=== PATIENT | male | born 1950 | race Hispanic/Latino ===

== ENCOUNTER 2018-07-11 11:03 | Outpatient (CLI) | payer BC ==
--- NOTE | 2018-07-11 13:51 | MRI ---
MRI LEFT KNEE: DATE: 07/11/2018. PROVIDED CLINICAL HISTORY: Left knee pain. FINDINGS: The anterior cruciate ligament, posterior cruciate ligament, medial collateral ligament, and lateral collateral ligamentous complex demonstrate an intact MR appearance, as does the extensor mechanism. There is a complex nondisplaced tear involving the body and body-anterior horn junction of the latera l meniscus. There is signal alteration involving the body of the medial meniscus which is not clearl y grade III in nature. No focal articular cartilage defect is apparent. There is a small knee joint effusion. There is patchy signal alteration on fluid sensitive sequences involving the plantaris, lateral head gastrocnemius, and proximal soleus musculature in addition to the proximal anterior foreleg musculatu re. There is diffuse noncircumscribed fluid signal intensity within the subcutaneous adipose layer, essentially circumferentially about the knee. There is Young's cyst formation, with fluid signal int ensity along the intramuscular fascial planes of the posteromedial proximal foreleg presumably reflec ting Young's cyst rupture. Patchy signal alternation among fluid sensitive sequences also noted invo lving the distal biceps femoris muscle. IMPRESSION: 1. Complex nondisplaced body and body anterior horn junction tear of the lateral meniscus. 2. Small knee joint effusion with Young's cyst formation and evidence for Young's cyst rupture. 3. Patchy nonspecific signal alteration on fluid-sensitive sequences involving the proximal foreleg and to a lesser extent distal body musculature. Given the diffuse nature, myositis could be consider ed. Muscular strains could also be considered. POS: [facility]
== END 2018-07-11 11:04 | disposition home or self-care (01) ==
LOC: SCSMRI 11:03
PROVIDERS: ATTEND Orthopaedic Surgery
DX: S83.242A Other tear of medial meniscus, current injury, left knee, initial encounter (principal); S83.282A Other tear of lateral meniscus, current injury, left knee, initial encounter; M71.22 Synovial cyst of popliteal space [Baker], left knee; M25.462 Effusion, left knee; R93.7 Abnormal findings on diagnostic imaging of other parts of musculoskeletal system

== ENCOUNTER 2018-07-25 09:35 | Day surgery (SDC) | payer BC ==
[2018-07-20 09:37] VITALS: BMI 27.2
[2018-07-25] MEDS ORDERED: PROPOFOL 20 ML ONE (11:30)
[2018-07-25 11:44] LABS: #Eosinphils 0.2 thou/uL (0.0-0.7); #Lymphocytes 2.2 thou/uL (1.20-3.40); #Monocytes 0.5 thou/uL (0.11-0.59); %Basophils 0.5 % (0.0-1.0); %Lymphocytes 24.9 % (21.0-51.0); %Monocytes 5.7 % (0.0-10.0); %Neutrophils 66.9 % (42.0-75.0); Hemoglobin 14.4 g/dL (14.0-18.0); Mean Corpuscular HGB CONC 33.8 g/dL (32.0-36.0); Mean Corpuscular Hemoglobin 29.3 pg (27.0-31.0); Mean Corpuscular Volume 86.6 fL (78.0-98.0); Mean Platelet Volume 6.5 fL (7.4-10.4); Platelet Count 323 thou/uL (130-400); RBC Distribution Width 11.6 % (11.5-14.5); Red Blood Cell (RBC) Count 4.93 mill/uL (4.70-6.10)
[2018-07-25 12:02] LABS: Anion Gap 14 mmol/L (10-20); BUN (Urea Nitrogen) 25 mg/dL (8.4-25.7); Calc. Creatinine Clearance 84 mL/min (70-130); Calcium 9.3 mg/dL (7.8-10.44); Carbon Dioxide 25 mmol/L (23-31); Chloride 102 mmol/L (98-107); Estimated GFR-MDRD 70; Glucose 264 mg/dL (80-115); Potassium 3.7 mmol/L (3.5-5.1); Sodium 137 mmol/L (136-145)
[2018-07-25] MEDS ORDERED: Insulin Regular 300 UNITS/3 ML VIAL ONE (12:25)
[2018-07-25] MEDS ORDERED: CEFAZOLIN 2 GM/50 ML BAG ONE (13:27)
[2018-07-25] MEDS ORDERED: Bupivacaine HCl 0.5%/Epinephrine 1:200,000/PF 30 ml Vial ONE (15:32)
[2018-07-25] MEDS ORDERED: Lidocaine 2% w/Epinephrine 1:200K 20 ML VIAL ONE (15:32)
[2018-07-25] MEDS ORDERED: PROPOFOL 200 MG/20 ML VIAL ONE (18:31)
[2018-07-25] MEDS ORDERED: Ketorolac Tromethamine 30 MG/ML VIAL ONE (18:31)
[2018-07-25] MEDS ORDERED: Ondansetron PF 4 MG/2 ML Vial ONE (18:31)
[2018-07-25] MEDS ORDERED: Lidocaine 1% PF 5 ML VIAL ONE (18:31)
[2018-07-25] MEDS ORDERED: ePHEDrine/0.9% NaCl/PF SYRINGE 50 mg/10 ml ONE (18:31)
--- NOTE | 2018-07-25 22:08 | OP ---
DATE OF PROCEDURE: 07/25/2018 PREOPERATIVE DIAGNOSIS: Meniscus tear, left knee. POSTOPERATIVE DIAGNOSIS: Medial and lateral meniscus tear, left knee. ANESTHESIA: General. BLOOD LOSS: Minimal. SPECIMEN: None. DRAINS: None. COMPLICATION: None. TOURNIQUET: Not used. FINDINGS AT SURGERY: No significant femur, tibia arthritis. Large complex tear involving most of the lateral meniscus, which probably had been close to a discoid lateral meniscus based on the large volume of meniscal tissue, small posterior horn medial meniscus tear. Intact anterior cruciate ligament. Mild chondromalacia patella. Scope was placed in the lateral portal. Probe was placed in the medial portal. Findings were as above. I debrided the medial meniscus using basket forceps, smoothed it using 4.0 full-radius resector. Lateral compartment had a large meniscal fragment of the joints, debrided using basket forceps and shaver. Alternating back and forth tuning forceps and shaver until I can get a good debridement of the lateral meniscus. I did leave a good room, the lateral meniscus was probed and found to be stable. I irrigated the knee and swept the gutters for loose bodies. The knee was then drained. Sterile dressings were applied. Job ID: [id number]
== END 2018-07-25 16:17 | disposition home or self-care (01) ==
LOC: SDC 09:35
PROVIDERS: ATTEND Orthopaedic Surgery
PROC: 0SBD4ZZ Excision of Left Knee Joint, Percutaneous Endoscopic Approach (ICD-10-PCS; principal; 2018-07-25)
DX: S83.272A Complex tear of lateral meniscus, current injury, left knee, initial encounter (principal); S83.242A Other tear of medial meniscus, current injury, left knee, initial encounter; M22.42 Chondromalacia patellae, left knee; E11.9 Type 2 diabetes mellitus without complications; I10 Essential (primary) hypertension; E78.5 Hyperlipidemia, unspecified; E03.9 Hypothyroidism, unspecified; Z79.899 Other long term (current) drug therapy; Z79.4 Long term (current) use of insulin; Z79.02 Long term (current) use of antithrombotics/antiplatelets; Z95.1 Presence of aortocoronary bypass graft; Z95.5 Presence of coronary angioplasty implant and graft
CPT/HCPCS: 36415; 36416; 80048; 85025; 93005; 93010; G8978-GP-CJ; G8979-GP-CJ; G8980-GP-CJ; J0670; J1815; J1885; J2001; J2405; J2704

== ENCOUNTER 2020-07-06 12:43 | Inpatient (IN) | payer BC, MEDICARE ==
[2020-07-06 14:13] LABS: #Eosinphils 0.2 thou/uL (0.0-0.7); #Lymphocytes 2.8 thou/uL (1.20-3.40); #Neutrophils 9.2 thou/uL (1.40-6.50); %Basophils 0.3 % (0.0-1.0); %Eosinophils 1.3 % (0.0-10.0); %Lymphocytes 21.1 % (21.0-51.0); %Monocytes 7.4 % (0.0-10.0); %Neutrophils 69.8 % (42.0-75.0); Hemoglobin 12.7 g/dL (14.0-18.0); Mean Corpuscular HGB CONC 32.7 g/dL (32.0-36.0); Mean Corpuscular Hemoglobin 29.7 pg (27.0-31.0); Mean Platelet Volume 7.2 fL (7.4-10.4); Platelet Count 508 thou/uL (130-400); RBC Distribution Width 11.7 % (11.5-14.5); Red Blood Cell (RBC) Count 4.28 mill/uL (4.70-6.10); White Blood Cell (WBC) Count 13.1 thou/uL (4.8-10.8)
[2020-07-06 14:37] LABS: ALT (SGPT) 20 U/L (8-55); AST (SGOT) 24 U/L (5-34); Albumin 3.7 g/dL (3.4-4.8); Alkaline Phosphatase 271 U/L (40-110); Anion Gap 16 mmol/L (10-20); BUN (Urea Nitrogen) 27 mg/dL (8.4-25.7); Bilirubin, Total 0.3 mg/dL (0.2-1.2); Calc. Creatinine Clearance 0 mL/min (70-130); Calcium 9.3 mg/dL (7.8-10.44); Carbon Dioxide 26 mmol/L (23-31); Chloride 101 mmol/L (98-107); Globulin 3.6 g/dL (2.4-3.5); Glucose 81 mg/dL (80-115); Potassium 5.4 mmol/L (3.5-5.1); Protein, Total 7.3 g/dL (5.8-8.1); Sodium 138 mmol/L (136-145)
[2020-07-06] MEDS ORDERED: Vancomycin HCl 1.25 GM in Sodium Chloride 0.9% 250 ML 250 ML IVPB ONE (15:00)
[2020-07-06] MEDS ORDERED: Piperacillin/Tazobactam 4.5 GM VIAL ONE (15:09)
--- NOTE | 2020-07-06 15:10 | PDOC.FPRHP ---
- History of Present Illness Chief Complaint: My toe is black History of Present Illness: Mr. Carbajal is a 70yoM with a PMH of uncontrolled DMII who was recently hospitalized in [facility] (discharged 3 days ago) for similar complaint. He was hospitalized for cellulitis of the right lower extremity and treated with Vanc and Cefepime IV. He was discharged without oral antibiotics. Today he followed up with his PCP, Dr. Judd, and was directly sent to the ED. He states that the toe is not painful, however, he does not have good sensation below the knee. He states it appears more black and the redness on his foot spread out laterally. He denies fever/chills. ED Course: Vanc/Zosyn, 1L NS - Allergies/Adverse Reactions Allergies Allergy/AdvReac Type Severity Reaction Status Date / Time No Known Allergies Allergy Verified 10/18/19 23:37 - Home Medications Medication Instructions Recorded Confirmed Type Clopidogrel Bisulfate [Clopidogrel] 1 tab PO DAILY 07/20/18 07/06/20 History Fish Oil 1,000 mg PO DAILY 07/20/18 07/06/20 History Magnesium 250 mg PO DAILY 07/20/18 07/06/20 History Potassium Gluconate [Potassium] 99 mg PO DAILY 07/20/18 07/06/20 History Aspirin [Ecotrin Low Strength] 81 mg PO DAILY tab 07/03/20 07/06/20 Rx Atenolol 25 mg PO DAILY #30 tablet 07/03/20 07/06/20 Rx Atorvastatin Calcium 20 mg PO DAILY #30 tablet 07/03/20 07/06/20 Rx Insulin Glargine,Hum.Rec.Anlog 15 unit SC DAILY #1 pen 07/03/20 07/06/20 Rx [Lantus Solostar] - History PMHx: uncontrolled DM II, diabetic nephropathy, HTN, HLD, CAD, CKD II PSHx: CABG x3 FHx: Father and brother have CAD Social: Denies alcohol, tobacco, or illicit drug use. - Review of Systems General: denies: fever/chills, weight/appetite/sleep changes, night sweats, fatigue Eyes: denies: eye pain, vision changes ENT: denies: nasal congestion, rhinorrhea Respiratory: denies: cough, congestion, shortness of breath Cardiovascular: denies: chest pain, palpitation, edema, paroxysmal nocturnal dyspnea, orthopnea Gastrointestinal: denies: nausea, vomiting, diarrhea, constipation Genitourinary: denies: incontinence, dysuria Skin: reports: lesions, other (blackness of R 5th digit). denies: rashes Musculoskeletal: reports: other (erythema on R foot). denies: pain, tenderness, stiffness, swelling Neurological: reports: numbness Psychological: reports: depression. denies: anxiety - Vital signs BP: 108/58, MAP: 79, Pulse: 70, Resp: 16, Temp: 98.4 (Oral), Pain: 0, O2 sat: 99 on (Room Air), Weight 79kg - Physical Exam Constitutional: NAD, awake, alert and oriented, well developed HEENT: normocephalic and atraumatic, PERRLA, EOMI, grossly normal vision, grossly normal hearing, MMM Neck: supple, FROM, trachea midline Heart: RRR, normal S1/S2, no murmurs/rubs/gallops, pulses present, no edema Lungs: CTAB, no respiratory distress, good air movement, no rales/rhonchi, no wheezing Abdomen: soft, non-tender, bowel sounds present Musculoskeletal: other Neurological: no focal deficit, CN II-XII intact -Skin: No peripheral pulses are palpable below popliteal bilaterally. Erythema and edema to midfoot, no streaking. Total black eschar of 5th toe. Patient unable to flex. Heme/Lymphatic: no unusual bruising or bleeding, no purpura, no petechia Psychiatric: normal mood and affect, good judgment and insight, intact recent and remote memory FMR H&P: Results - Labs Result Diagrams: 07/06/20 13:58 07/06/20 16:39 Lab results: WBC 13.1 thou/uL (4.8-10.8) H 07/06/20 13:58 Hgb 12.7 g/dL (14.0-18.0) L 07/06/20 13:58 Hct 39.0 % (42.0-52.0) L 07/06/20 13:58 MCV 91.0 fL (78.0-98.0) 07/06/20 13:58 Plt Count 508 thou/uL (130-400) H 07/06/20 13:58 Neutrophils % 69.8 % (42.0-75.0) 07/06/20 13:58 ESR Westergren 55 mm/hr (Less than 20) H 07/06/20 13:58 Sodium 138 mmol/L (136-145) 07/06/20 13:58 Potassium 5.4 mmol/L (3.5-5.1) H 07/06/20 13:58 Chloride 101 mmol/L (98-107) 07/06/20 13:58 Carbon Dioxide 26 mmol/L (23-31) 07/06/20 13:58 BUN 27 mg/dL (8.4-25.7) H 07/06/20 13:58 Creatinine 1.16 mg/dL (0.7-1.3) 07/06/20 13:58 Glucose 81 mg/dL (80-115) 07/06/20 13:58 Lactic Acid 2.0 mmol/L (0.5-2.2) 07/06/20 13:58 Calcium 9.3 mg/dL (7.8-10.44) 07/06/20 13:58 Total Bilirubin 0.3 mg/dL (0.2-1.2) 07/06/20 13:58 AST 24 U/L (5-34) 07/06/20 13:58 ALT 20 U/L (8-55) 07/06/20 13:58 Alkaline Phosphatase 271 U/L (40-110) H 07/06/20 13:58 C-Reactive Protein 7.60 mg/dL (= or < 0.5) H 07/06/20 13:58 Serum Total Protein 7.3 g/dL (5.8-8.1) 07/06/20 13:58 Albumin 3.7 g/dL (3.4-4.8) 07/06/20 13:58 - Radiology Interpretation Other Status: report reviewed by me (XR: No xray evidence of osteo) MRI - abdomen Status: report reviewed by me (MRI of foot on 06/30 showed no evidence of osteo but recommended short-term f/u image if symptoms worsen or fail to improve.) FMR H&P: A/P - Problem List (1) Cellulitis of right lower extremity Current Visit: No Status: Acute Code(s): L03.115 - CELLULITIS OF RIGHT LOWER LIMB (2) Noncompliance Current Visit: No Status: Acute Code(s): Z91.19 - PATIENT'S NONCOMPLIANCE W OTH MEDICAL TREATMENT AND REGIMEN (3) Peripheral arterial disease Current Visit: No Status: Acute Code(s): I73.9 - PERIPHERAL VASCULAR DISEASE, UNSPECIFIED (4) CAD (coronary artery disease) Current Visit: No Status: Chronic Code(s): I25.10 - ATHSCL HEART DISEASE OF [place] CORONARY ARTERY W/O ANG PCTRS Qualifiers: Coronary Disease-Associated Artery/Lesion type: [place] artery [place] vs. 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 Diabetes mellitus complication status: with hyperglycemia Qualified Code(s): E11.65 - Type 2 diabetes mellitus with hyperglycemia; Z79.4 - half-way (current) use of insulin (6) Diabetic neuropathy associated with type 2 diabetes mellitus Current Visit: No Status: Chronic Code(s): E11.40 - TYPE 2 DIABETES MELLITUS WITH DIABETIC NEUROPATHY, UNSP Qualifiers: Diabetes mellitus complication detail: diabetic polyneuropathy Qualified Code(s): E11.42 - Type 2 diabetes mellitus with diabetic polyneuropathy (7) HLD (hyperlipidemia) Current Visit: No Status: Chronic Code(s): E78.5 - HYPERLIPIDEMIA, UNSPECIF IED Qualifiers: Hyperlipidemia type: unspecified Qualified Code(s): E78.5 - Hyperlipidemia, unspecified (8) HTN (hypertension) Current Visit: No Status: Chronic Code(s): I10 - ESSENTIAL (PRIMARY) HYPERTENSION Qualifiers: Hypertension type: essential hypertension Qualified Code(s): I10 - Essential (primary) hypertension (9) Dry gangrene Current Visit: Yes Status: Acute Code(s): I96 - GANGRENE, NOT ELSEWHERE CLASSIFIED - Plan Dry gangrene of R fifth digit, with surrounding cellulitis XR: No xray evidence of osteo CRP 7.6, ESR 55 MRI 06/30: No evidence for skylar osteo or abscess CT run off 06/30: Mild narrowing of the bilateral superficial femoral arteries, bilateral 3 vessel disease - Consult General Surgery and CV surgery for recommendations. Patient has known PVD and may benefit from revascularization, however he may require amputation. - Continue broad spectrum antibiotics (Vancomycin and Cefepime 07/06) - Repeat MRI ordered - procal ordered - CRP and ESR elevated - Blood and urine cultures pending DM II , complicated by DM nephropathy - Resume home medication regimen - SSI HTN - Resume home meds - Holding blood thinners until surgery sees him HLD - Resume home meds CKD - aware, will renally dose medications Code: Full IV fluids: None Diet: HH, NPO at midnight PCP: [facility] Dispo: Stable, admitted for inpatient. Anticipate LOS > 48 hours FMR H&P: Upper Level - Plan Date/Time: 07/06/20 1510 I, Hemal Lewis DO, have evaluated this patient and agree with findings/plan as outlined by merchandising intern resident. Pertinent changes/additions are listed here. 70 yo uncontrolled IDDM presents with worsening erythema of R foot he was recently dc'd from [facility] after being treated for LE cellulitis. mri and vascular studies completed there showed oseitis w/o osteomyelitis of R foot and severe b/l 3v disease. he reports redness improved throughout hospital stay, dc'd wo abx. fu at Dr. Olivares office today with worsening erythema and black R 5th toe. he denies pain/fever/chills. reports his sugars have been in the 300's. in the ED he was given vanc and zosyn, labs revealed elevated inflammatory markers, xray does not show kendell erosions. on my exam no peripheral pulses are palpable below popliteal bilaterally. erythema and edema to midfoot, no streaking. total black eschar of 5th toe. for his diabetic foot infection we will treat with vanc and cefepime, order mri to r/o osteomyelitis, consult gen surg for eval. For his dry gangrene we will consult cv surg for evaluation, vascular imaging completed in [facility]. will admit to inpt surg for ELOS>48hrs.
--- NOTE | 2020-07-06 15:17 | RAD ---
RIGHT FOOT 3 VIEWS: HISTORY: Wound infection. FINDINGS: Fairly extensive vascular calcifications are noted. I do not see any definite plain film evidence fo r osteomyelitis. IMPRESSION: 1. Atherosclerosis. 2. No plain film evidence for osteomyelitis. POS: [facility]
[2020-07-06] MEDS ORDERED: Dextrose 5% in Water 1,000 ML IV PRN (15:52)
[2020-07-06] MEDS ORDERED: HumaLOG 300 UNITS/3 ML VIAL SC PRN (15:52)
[2020-07-06] MEDS ORDERED: Dextrose 50% Abboject 50 ML SYRINGE SLOW IVP PRN (15:52)
[2020-07-06 17:15] LABS: Anion Gap 14 mmol/L (10-20); BUN (Urea Nitrogen) 25 mg/dL (8.4-25.7); Calc. Creatinine Clearance 0 mL/min (70-130); Calcium 8.7 mg/dL (7.8-10.44); Carbon Dioxide 24 mmol/L (23-31); Chloride 104 mmol/L (98-107); Glucose 108 mg/dL (80-115); Potassium 4.3 mmol/L (3.5-5.1); Sodium 138 mmol/L (136-145)
[2020-07-06] MEDS ORDERED: Vancomycin HCl 1.5 GM in Sodium Chloride 0.9% 250 ML 300 ML IVPB SCH (22:00)
[2020-07-07] MEDS: Cefepime 2 GM in Sodium Chloride 0.9% 100 ML IVPB SCH ×3 (00:08→17:55)
[2020-07-07] MEDS: Vancomycin 1 GM in Premix Bag 1 BAG IVPB SCH ×2 (02:53→16:32)
[2020-07-07 05:50] LABS: SARS-CoV-2 MS2 Positive; SARS-CoV-2 N Gene Negative; SARS-CoV-2 S Gene Negative; SARS-CoV-2 by NAA Not Detected (NotDetected); SARS-CoV-2 orf1ab Negative
[2020-07-07 06:46] LABS: #Basophils 0.1 thou/uL (0.0-0.2); #Eosinphils 0.3 thou/uL (0.0-0.7); #Monocytes 0.9 thou/uL (0.11-0.59); #Neutrophils 7.2 thou/uL (1.40-6.50); %Basophils 0.5 % (0.0-1.0); %Eosinophils 2.4 % (0.0-10.0); %Lymphocytes 19.1 % (21.0-51.0); %Monocytes 8.3 % (0.0-10.0); %Neutrophils 69.7 % (42.0-75.0); Hemoglobin 11.4 g/dL (14.0-18.0); Mean Corpuscular HGB CONC 33.5 g/dL (32.0-36.0); Mean Corpuscular Hemoglobin 30.4 pg (27.0-31.0); Mean Corpuscular Volume 90.8 fL (78.0-98.0); Platelet Count 417 thou/uL (130-400); RBC Distribution Width 11.4 % (11.5-14.5); Red Blood Cell (RBC) Count 3.74 mill/uL (4.70-6.10); White Blood Cell (WBC) Count 10.3 thou/uL (4.8-10.8)
--- NOTE | 2020-07-07 07:03 | PDOC.FM ---
- Subjective Subjective: Patient is resting comfortably in bed. He states he still has no pain, but does think his toe looks worse than yesterday. States his brother had to have a BKA and he wants to avoid that happening to him as well. No fever chills, chest pain or shortness of breath. - Objective MAR Reviewed: Yes Vital Signs & Weight: Vital Signs (12 hours) Temp Pulse Resp BP Pulse Ox 07/07/20 05:30 98.5 F 60 16 117/59 L 07/07/20 00:08 98.4 F 63 16 112/58 L 07/06/20 21:15 98.7 F 62 18 144/67 H 98 Weight Weight 79.8 kg Result Diagrams: 07/07/20 06:31 07/06/20 16:39 Phys Exam - Physical Examination Constitutional: NAD HEENT: PERRLA, moist MMs Respiratory: no wheezing, clear to auscultation bilateral Cardiovascular: RRR, no significant murmur Gastrointestinal: soft, non-tender, positive bowel sounds edema of R foot, 1+ pitting Psychiatric: normal affect, A&O x 3 Deviation from normal: No peripheral pulses are palpable below popliteal bilaterally. Erythema and -: edema to midfoot, no streaking. Total black eschar of 5th toe. Dx/Plan (1) Cellulitis of right lower extremity Code(s): L03.115 - CELLULITIS OF RIGHT LOWER LIMB Status: Acute (2) Noncompliance Code(s): Z91.19 - PATIENT'S NONCOMPLIANCE W OTH MEDICAL TREATMENT AND REGIMEN Status: Acute (3) Peripheral arterial disease Code(s): I73.9 - PERIPHERAL VASCULAR DISEASE, UNSPECIFIED Status: Acute (4) CAD (coronary artery disease) Code(s): I25.10 - ATHSCL HEART DISEASE OF [place] CORONARY ARTERY W/O ANG PCTRS Status: Chronic Qualifiers: Coronary Disease-Associated Artery/Lesion type: [place] artery [place] vs. 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 Diabetes mellitus complication status: with hyperglycemia Qualified Code(s): E11.65 - Type 2 diabetes mellitus with hyperglycemia; Z79.4 - termite treater (current) use of insulin (6) Diabetic neuropathy associated with type 2 diabetes mellitus Code(s): E11.40 - TYPE 2 DIABETES MELLITUS WITH DIABETIC NEUROPATHY, UNSP Status: Chronic Qualifiers: Diabetes mellitus complication detail: diabetic polyneuropathy Qualified Code(s): E11.42 - Type 2 diabetes mellitus with diabetic polyneuropathy (7) HLD (hyperlipidemia) Code(s): E78.5 - HYPERLIPIDEMIA, UNSPECIFIED Status: Chronic Qualifiers: Hyperlipidemia type: unspecified Qualified Code(s): E78.5 - Hyperlipidemia, unspecified (8) HTN (hypertension) Code(s): I10 - ESSENTIAL (PRIMARY) HYPERTENSION Status: Chronic Qualifiers: Hypertension type: essential hypertension Qualified Code(s): I10 - Essential (primary) hypertension (9) Dry gangrene Code(s): I96 - GANGRENE, NOT ELSEWHERE CLASSIFIED Status: Acute - Plan Plan: Dry gangrene of R fifth digit, with surrounding cellulitis XR: No xray evidence of osteo CRP 7.6, ESR 55 , procal 0.03 MRI 06/30: No evidence for skylar osteo or abscess CT run off 06/30: Mild narrowing of the bilateral superficial femoral arteries, bilateral 3 vessel disease - Consulted General Surgery Dr. Khan 07/06, appreciate recs - Consulted Vascular Surg Dr. Rincon 07/06, appreciate recs - plans for Angiography today, prior to surgical intervention - Continue broad spectrum antibiotics (Vancomycin and Cefepime 07/06) - Will hold repeat MRI pending recs - Blood cultures pending DM II , complicated by DM nephropathy - Resume home medication regimen - SSI HTN - Resume home meds - Holding blood thinners until surgery sees him HLD - Resume home meds CKD - aware, will renally dose medications Code: Full IV fluids: None Diet: HH, NPO at midnight PCP: [facility] Dispo: Stable, admitted for inpatient. Anticipate LOS > 48 hours Addendum - Attending - Attending Attestation Date/Time: 07/07/20 [id number] I personally evaluated the patient and discussed the management with Dr. Fraser. I agree with the History, Examination, Assessment and Plan documented above with any addition or exceptions noted below. Patient here for cellulitis and dry gangrene of lower extremity digit. CV surgery on board, taking patient for angiography. Further mgmt and suspected amputation based on their recommendations.
[2020-07-07] MEDS: Magnesium Oxide 250 MG TAB PO SCH (07:19)
[2020-07-07] MEDS: Fish Oil 1,000 MG CAP PO SCH (07:19)
[2020-07-07] MEDS: Atorvastatin Calcium 20 MG TAB PO SCH (07:19)
[2020-07-07] MEDS: Insulin Glargine 15 UNITS in Pre-Filled Syringe SC SCH (07:19)
[2020-07-07] MEDS: Atenolol 25 MG TAB PO SCH (07:31)
--- NOTE | 2020-07-07 07:37 | CON ---
DATE OF CONSULTATION: HISTORY OF PRESENT ILLNESS: This is a pleasant 70-year-old gentleman who is status post CABG about 6-7 years ago with a history of dyslipidemia and poorly controlled diabetes mellitus. He has no smoking history, no hypertension history. He developed some cellulitis and some gangrenous changes on his right 5th toe and was hospitalized last week at [facility] and then readmitted yesterday with worsening of his condition. CT angiogram and MRI were done at [facility], and these were reviewed and the patient primarily has tibioperoneal disease, although does have some popliteal disease as well bilaterally. HOME MEDICATIONS: Include, 1. Aspirin 81 a day. 2. Atenolol 25 a day. 3. Atorvastatin 20 a day. 4. Lantus insulin 15 units a day. ALLERGIES: HE HAS NO KNOWN ALLERGIES. SPECIFICALLY, NO IODINE ALLERGY. 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 PHYSICAL EXAMINATION: VITAL SIGNS: Height 5 feet 10 inches, weight 175. NECK: No carotid bruits. LUNGS: Clear to auscultation. CARDIAC: Regular rate and rhythm. No murmurs. CHEST: Well-healed sternal incision. ABDOMEN: Soft, nontender. EXTREMITIES: Palpable femoral and popliteal pulses bilaterally with no palpable pedal pulses. He has cellulitis with skin slough over the dorsum of his right foot triangulated from a gangrenous 5th toe. He is nontender and has no edema. ASSESSMENT AND PLAN: At this time, the patient has high-grade lesions in his tibioperoneal trunk, anterior tibial artery, and distal disease as well. He also has some disease in his popliteal artery above the knee, but does have a palpable popliteal pulse. I have suggested angiography prior to surgical intervention for his gangrenous foot, and informed consent has been obtained for angiography and intervention as needed. He has been on Plavix in the past and will probably need this again post intervention. Job ID: [id number]
[2020-07-07] MEDS ORDERED: Fentanyl 100 MCG/2 ML VIAL ONE (08:30)
[2020-07-07] MEDS ORDERED: Heparin 10,000 UNITS/ 10 ML VIAL ONE (08:30)
[2020-07-07] MEDS ORDERED: Midazolam HCl 2 mg/2 ml Vial ONE (08:30)
[2020-07-07] MEDS ORDERED: Non-Formulary Item 1 EACH (Insulin Glargine,Hum.Rec.Anlog [Lantus Solostar] 100 UNIT/ML P SC SCH (09:00)
[2020-07-07] MEDS ORDERED: Clopidogrel Bisulfate 300 MG TAB ONE (09:30)
[2020-07-07] MEDS ORDERED: Protamine Sulfate 50 MG/5 ML VIAL ONE (09:30)
--- NOTE | 2020-07-07 11:03 | OP ---
DATE OF PROCEDURE: 07/07/2020 PREOPERATIVE DIAGNOSES: Gangrene, right foot and peripheral artery disease. PROCEDURE PERFORMED: Right leg angiography with angioplasty of the tibioperoneal trunk with a 3 x 15 mm balloon and angioplasty of the anterior tibial with a 3 x 15 balloon. CONTRAST: 25 mL. FLUOROSCOPY: 7.9 minutes. DESCRIPTION OF PROCEDURE: After prepping and draping, ultrasound-guided micropuncture of the right common femoral artery was performed at three different sites, and I was unable to access the superficial femoral artery as the wire kept going down the profunda. A standard 0.035 needle and wire were then used to cannulate the common femoral artery and then the superficial femoral. A 6-Dutch sheath was then placed, following which, runoff of the leg was obtained. There was about a 50% stenosis of the mid to proximal popliteal artery, and then there was about an 80% stenosis of the takeoff of the tibioperoneal trunk and about a 90% stenosis of the anterior tibial about 2 cm from its origin. After heparinization, Luge wires were placed down both anterior tibial and tibioperoneal trunk into the peroneal artery, and initially, the tibioperoneal trunk was dilated x2 with a 3 mm balloon, and completion angiography showed a nice result with no residual stenosis. Anterior tibial was similarly treated with two inflations, following which, there was a good result with no residual stenosis. There was three-vessel runoff to the foot with mild disease more distally in the vessels, but nothing critical enough to treat. Following this, protamine was given to partially reverse the heparin, 150 mg of Plavix was given, and the sheath was removed and pressure held. Job ID: [id number]
[2020-07-07] MEDS ORDERED: Iopamidol 370 76% 50 ML VIAL FS ONE (12:49)
[2020-07-07 13:51] VITALS: BMI 25.2
[2020-07-07] MEDS: metroNIDAZOLE 500 MG in Premix Bag 1 BAG IVPB SCH ×2 (13:54→22:04)
[2020-07-07] MEDS ORDERED: Vancomycin 1 GM/200 ML BAG ONE (15:54)
--- NOTE | 2020-07-07 22:09 | CON ---
DATE OF CONSULTATION: HISTORY OF PRESENT ILLNESS: Dang Carbajal junior is a 70-year-old male patient admitted by Family Practice Service. Apparently, patient was hospitalized at [facility] last week. He had dry gangrene of his right small toe and cellulitis of his foot. He was noted to have PAD, sent home with antibiotics, saw his primary care physician, Dr. Judd, who looked his foot and sent him back to [facility]. The patient states he was supposed to have been sent home with antibiotics, but none were called in for him. He was not given a prescription. The patient does not smoke. He has type 2 diabetes mellitus, on insulin and oral hypoglycemics. 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 I was called yesterday by the family practice residents. Case discussed with dry gangrene of his right small toe. The patient was suggested to have consultation. Dr. Rincon saw him and today patient underwent 07/07/2020 arteriogram runoff with angioplasty of the tibioperoneal trunk with a balloon angioplasties with good results. There was noted to be a 50% stenosis of the mid proximal popliteal artery, 80% stenosis of the takeoff of the tibioperoneal trunk, about 90% stenosis of the anterior tibial, about 2 cm from its origin. At the end of the procedure, patient had 3-vessel runoff to the foot with mild disease more distally in the vessels, but nothing critical enough to be flow limiting. The patient wished to have amputation of the toe if possible, but I looked at it and there was dry gangrene with some skin blistering and discoloration over the dorsum of the foot. I would recommend that he allow revascularization have optimal effect and follow up with me as an outpatient. The patient was COVID negative on 07/06/2020. ALLERGIES: NONE. TOBACCO: None. ALCOHOL: Rarely. MEDICATIONS AT HOME: He takes: 1. Potassium. 2. Magnesium. 3. Insulin. 4. Fish oil. 5. Atorvastatin. 6. Atenolol. 7. Aspirin. In the hospital, he is on vancomycin and Flagyl and cefepime. PAST SURGICAL HISTORY: Coronary artery bypass grafting 8 years ago, followed by Dr. Lawton last saw him last year and had a stress test at Dr. Lawton's office that was normal. The patient has had left knee arthroscopy. PAST MEDICAL HISTORY: Insulin-dependent type 2 diabetes mellitus, hypertension. The patient is up to date on his colonoscopies. His retired postman . His was present during this interview. The patient has severe neuropathy. PHYSICAL EXAMINATION: VITAL SIGNS: Height 5 foot 10, 175 pounds, 98.1, 59, 140/62. LUNGS: Clear to auscultation. CARDIAC: Regular rate and rhythm without murmur, rub, or gallop. ABDOMEN: Soft, nontender. EXTREMITIES: Good femoral pulses, popliteal pulse, right. He has dry gangrene of his right 5th toe with changes of skin over the dorsum of his foot with mild cellulitis. There is marking of the borders with cellulitis, which is markedly improved related to that marking in the past. There is no ankle edema or foot edema. LABORATORY DATA: BUN and creatinine 25 and 1.02. CBC is normal. ASSESSMENT AND PLAN: 1. Severe peripheral arterial disease related to his diabetes, status post tibioperoneal trunk posterior tibial artery. He has good results. Recommended continued intravenous antibiotics and discharge him home in 24 to 48 hours on oral antibiotics, probably Bactrim and Cipro. Recommend follow up in my office in 1 to 2 weeks for close surveillance of his right foot. He should wash this daily with soap and water and apply gauze or silver between his toe. I will see him in the office in a week or 2. He may need eventual amputation, but we should maximize blood flow and healing prior. There is no urgency to do this now. He should keep his weight off his heels during his convalescence to prevent decubitus. 2. Neuropathy. 3. Insulin-dependent diabetes mellitus type 2. 4. Stable coronary artery disease status post stress test at Dr. Lawton's office last year. Job ID: [id number]
[2020-07-08] MEDS: Cefepime 2 GM in Sodium Chloride 0.9% 100 ML IVPB SCH ×3 (01:46→17:30)
[2020-07-08] MEDS: Vancomycin 1 GM in Premix Bag 1 BAG IVPB SCH ×2 (03:37→14:26)
[2020-07-08] MEDS: metroNIDAZOLE 500 MG in Premix Bag 1 BAG IVPB SCH ×3 (06:05→22:06)
[2020-07-08] MEDS: HumaLOG 300 UNITS/3 ML VIAL SC PRN ×2 (06:13→11:07)
--- NOTE | 2020-07-08 06:21 | PDOC.FM ---
- Subjective Subjective: Patient is resting comfortably in bed. Reports he still has no pain. Denies fever/chills. No chest pain , SOB. - Objective MAR Reviewed: Yes Vital Signs & Weight: Vital Signs (12 hours) Temp Pulse Resp BP Pulse Ox 07/08/20 03:40 98.2 F 66 16 102/54 L 07/08/20 00:17 98.6 F 63 16 115/56 L 07/07/20 23:29 100 07/07/20 20:50 98.0 F 67 18 122/58 L 99 Weight Admit Weight 79.8 kg Weight 79.8 kg I&O: 07/06/20 07/07/20 07/08/20 06:59 06:59 06:59 Intake Total 525 Balance 525 Result Diagrams: 07/07/20 06:31 07/06/20 16:39 Phys Exam - Physical Examination Constitutional: NAD HEENT: PERRLA, moist MMs Respiratory: no wheezing, clear to auscultation bilateral Cardiovascular: RRR, no significant murmur Gastrointestinal: soft, non-tender, positive bowel sounds Neurological: moves all 4 limbs Psychiatric: normal affect, A&O x 3 Deviation from normal: No peripheral pulses are palpable below popliteal bilaterally. Erythema and -: edema to midfoot, no streaking. Total black eschar of 5th toe. Dx/Plan (1) Cellulitis of right lower extremity Code(s): L03.115 - CELLULITIS OF RIGHT LOWER LIMB Status: Acute (2) Noncompliance Code(s): Z91.19 - PATIENT'S NONCOMPLIANCE W OTH MEDICAL TREATMENT AND REGIMEN Status: Acute (3) Peripheral arterial disease Code(s): I73.9 - PERIPHERAL VASCULAR DISEASE, UNSPECIFIED Status: Acute (4) CAD (coronary artery disease) Code(s): I25.10 - ATHSCL HEART DISEASE OF [place] CORONARY ARTERY W/O ANG PCTRS Status: Chronic Qualifiers: Coronary Disease-Associated Artery/Lesion type: [place] artery [place] vs. 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 (6) Diabetic neuropathy associated with type 2 diabetes mellitus Code(s): E11.40 - TYPE 2 DIABETES MELLITUS WITH DIABETIC NEUROPATHY, UNSP Status: Chronic Qualifiers: Diabetes mellitus complication detail: diabetic polyneuropathy Qualified Code(s): E11.42 - Type 2 diabetes mellitus with diabetic polyneuropathy (7) HLD (hyperlipidemia) Code(s): E78.5 - HYPERLIPIDEMIA, UNSPECIFIED Status: Chronic Qualifiers: Hyperlipidemia type: mixed hyperlipidemia Qualified Code(s): E78.2 - Mixed hyperlipidemia (8) HTN (hypertension) Code(s): I10 - ESSENTIAL (PRIMARY) HYPERTENSION Status: Chronic Qualifiers: Hypertension type: essential hypertension Qualified Code(s): I10 - Essential (primary) hypertension (9) Dry gangrene Code(s): I96 - GANGRENE, NOT ELSEWHERE CLASSIFIED Status: Acute - Plan Plan: Dry gangrene of R fifth digit, with surrounding cellulitis XR: No xray evidence of osteo CRP 7.6, ESR 55 , procal 0.03 MRI 06/30: No evidence for skylar osteo or abscess CT run off 06/30: Mild narrowing of the bilateral superficial femoral arteries, bilateral 3 vessel disease - Consulted Vascular Surgery - Dr. Rincon, appreciate recs - 07/07 performed R leg angiography with angioplasty of the tibioperoneal trunk with a 3x15 balloon & angioplasty of the anterior tibial with a 3x15 balloon - Consulted General Surgery Dr. Khan 07/06, appreciate recs - Recommended allowing revascularization to have optimal effect, continue IV abx, d/c in 24-48 hours with oral abx (Bactrim/cipro), f/u in his office in 1-2 weeks - Continue broad spectrum antibiotics (Vancomycin and Cefepime 07/06) - Blood cultures pending DM II , complicated by DM nephropathy - Resume home medication regimen - SSI HTN - Resume home meds - Holding blood thinners until surgery sees him HLD - Resume home meds CKD - aware, will renally dose medications Code: Full IV fluids: None Diet: HH, NPO at midnight PCP: [facility] Dispo: Stable, admitted for inpatient. Anticipate LOS > 48 hours Addendum - Attending - Attending Attestation Date/Time: 07/08/20 1100 I personally evaluated the patient and discussed the management with Dr. Fraser. I agree with the History, Examination, Assessment and Plan documented above with any addition or exceptions noted below. Patient feeling improved. Continue IV abx per Dr. iBll hutchinson. Hopeful to discharge in the next 1-2 days on PO abx with outpatient follow up with surgery. Continue wound care.
[2020-07-08] MEDS: Magnesium Oxide 250 MG TAB PO SCH (08:59)
[2020-07-08] MEDS: Atenolol 25 MG TAB PO SCH (09:00)
[2020-07-08] MEDS: Aspirin 81 mg Enteric Coated Tablet PO SCH (09:01)
[2020-07-08] MEDS: Atorvastatin Calcium 20 MG TAB PO SCH (09:01)
[2020-07-08] MEDS: Clopidogrel Bisulfate 75 MG TAB PO SCH (09:01)
[2020-07-08] MEDS: Fish Oil 1,000 MG CAP PO SCH (09:01)
[2020-07-08] MEDS: Insulin Glargine 15 UNITS in Pre-Filled Syringe SC SCH (09:02)
[2020-07-09] MEDS: Acetaminophen 325 MG TAB PO PRN ×2 (00:44→11:42)
[2020-07-09] MEDS: Cefepime 2 GM in Sodium Chloride 0.9% 100 ML IVPB SCH ×2 (00:46→09:34)
[2020-07-09] MEDS: Vancomycin 1 GM in Premix Bag 1 BAG IVPB SCH (03:09)
[2020-07-09] MEDS: metroNIDAZOLE 500 MG in Premix Bag 1 BAG IVPB SCH (06:43)
[2020-07-09] MEDS: HumaLOG 300 UNITS/3 ML VIAL SC PRN ×2 (06:49→11:41)
--- NOTE | 2020-07-09 06:53 | PDOC.FM ---
- Subjective Subjective: Patient is resting comfortably in bed. No acute events overnight, no concerns. States that he is ready to leave today. Denies pain in the foot, fever/chills. Endorses some R arm pain from his IV the previous week that resolved with tylenol. - Objective MAR Reviewed: Yes Vital Signs & Weight: Vital Signs (12 hours) Temp Pulse Resp BP Pulse Ox 07/09/20 00:40 98.8 F 60 16 128/59 L 98 07/08/20 20:35 98.8 F 60 20 121/59 L 96 Weight Admit Weight 79.8 kg Weight 79.8 kg I&O: 07/07/20 07/08/20 07/09/20 06:59 06:59 06:59 Intake Total 525 Balance 525 Result Diagrams: 07/07/20 06:31 07/06/20 16:39 Phys Exam - Physical Examination Constitutional: NAD HEENT: PERRLA, moist MMs Respiratory: no wheezing, clear to auscultation bilateral Cardiovascular: RRR, no significant murmur Gastrointestinal: soft, non-tender, positive bowel sounds Neurological: non-focal, moves all 4 limbs Psychiatric: normal affect, A&O x 3 Deviation from normal: faint pulses detected in R dorsalis pedis, healing blister on dorsum, -: edema to midfoot, no streaking. Total black eschar of 5th toe. Dx/Plan (1) Cellulitis of right lower extremity Code(s): L03.115 - CELLULITIS OF RIGHT LOWER LIMB Status: Acute (2) Noncompliance Code(s): Z91.19 - PATIENT'S NONCOMPLIANCE W OTH MEDICAL TREATMENT AND REGIMEN Status: Acute (3) Peripheral arterial disease Code(s): I73.9 - PERIPHERAL VASCULAR DISEASE, UNSPECIFIED Status: Acute (4) CAD (coronary artery disease) Code(s): I25.10 - ATHSCL HEART DISEASE OF [place] CORONARY ARTERY W/O ANG PCTRS Status: Chronic Qualifiers: Coronary Disease-Associated Artery/Lesion type: [place] artery [place] vs. 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 Diabetes mellitus complication status: with hyperglycemia Qualified Code(s): E11.65 - Type 2 diabetes mellitus with hyperglycemia; Z79.4 - gymnastics instructor (current) use of insulin (6) Diabetic neuropathy associated with type 2 diabetes mellitus Code(s): E11.40 - TYPE 2 DIABETES MELLITUS WITH DIABETIC NEUROPATHY, UNSP Status: Chronic Qualifiers: Diabetes mellitus complication detail: diabetic polyneuropathy Qualified Co de(s): E11.42 - Type 2 diabetes mellitus with diabetic polyneuropathy (7) HLD (hyperlipidemia) Code(s): E78.5 - HYPERLIPIDEMIA, UNSPECIFIED Status: Chronic Qualifiers: Hyperlipidemia type: mixed hyperlipidemia Qualified Code(s): E78.2 - Mixed hyperlipidemia (8) HTN (hypertension) Code(s): I10 - ESSENTIAL (PRIMARY) HYPERTENSION Status: Chronic Qualifiers: Hypertension type: essential hypertension Qualified Code(s): I10 - [place] (primary) hypertension (9) Dry gangrene Code(s): I96 - GANGRENE, NOT ELSEWHERE CLASSIFIED Status: Acute - Plan Plan: Dry gangrene of R fifth digit, with surrounding cellulitis XR: No xray evidence of osteo CRP 7.6, ESR 55 , procal 0.03 BCx negative MRI 06/30: No evidence for skylar osteo or abscess CT run off 06/30: Mild narrowing of the bilateral superficial femoral arteries, bilateral 3 vessel disease - Consulted Vascular Surgery - Dr. Rincon, appreciate recs - 07/07 performed R leg angiography with angioplasty of the tibioperoneal trunk with a 3x15 balloon & angioplasty of the anterior tibial with a 3x15 balloon - Consulted General Surgery Dr. Khan 07/06, appreciate recs - Recommended allowing revascularization to have optimal effect, continue IV abx, will likely d/c today with oral abx (Bactrim/cipro), f/u in his office in 1-2 weeks DM II , complicated by DM nephropathy - Resume home medication regimen - SSI HTN - Resume home meds - Holding blood thinners until surgery sees him HLD - Resume home meds CKD - aware, will renally dose medications Code: Full IV fluids: None Diet: HH, NPO at midnight PCP: [facility] Dispo: Stable, likely d/c today with f/u with Dr. Khan in 1-2 weeks. Addendum - Attending - Attending Attestation Date/Time: 07/09/20 1035 I personally evaluated the patient and discussed the management with Dr. Fraser. I agree with the History, Examination, Assessment and Plan documented above with any addition or exceptions noted below. Patient stable. Ready for discharge on PO abx and outpatient GenSurg and CV surgery follow up.
[2020-07-09] MEDS: Magnesium Oxide 250 MG TAB PO SCH (08:34)
[2020-07-09] MEDS: Insulin Glargine 15 UNITS in Pre-Filled Syringe SC SCH (08:35)
[2020-07-09] MEDS: Fish Oil 1,000 MG CAP PO SCH (08:36)
[2020-07-09] MEDS: Clopidogrel Bisulfate 75 MG TAB PO SCH (08:36)
[2020-07-09] MEDS: Atenolol 25 MG TAB PO SCH (08:36)
[2020-07-09] MEDS: Aspirin 81 mg Enteric Coated Tablet PO SCH (08:36)
[2020-07-09] MEDS: Atorvastatin Calcium 20 MG TAB PO SCH (08:37)
[2020-07-09 12:29] VITALS: BP 116/57; TEMP 98.2
== END 2020-07-09 13:32 | disposition home or self-care (01) | DRG 253 ==
LOC: ERS 12:43 → ERHOLD 15:52 → 3SE 21:24
PROVIDERS: ADMIT Family Medicine; ATTEND Family Medicine
PROC: 047M3ZZ Dilation of Right Popliteal Artery, Percutaneous Approach (ICD-10-PCS; principal; 2020-07-07)
PROC: 047P3ZZ Dilation of Right Anterior Tibial Artery, Percutaneous Approach (ICD-10-PCS; 2020-07-07)
DX: E11.52 Type 2 diabetes mellitus with diabetic peripheral angiopathy with gangrene (principal); L03.115 Cellulitis of right lower limb; Z20.828 Contact with and (suspected) exposure to other viral communicable diseases; I25.10 Atherosclerotic heart disease of native coronary artery without angina pectoris; E11.65 Type 2 diabetes mellitus with hyperglycemia; E78.5 Hyperlipidemia, unspecified; I12.9 Hypertensive chronic kidney disease with stage 1 through stage 4 chronic kidney disease, or unspecified chronic kidney disease; N18.2 Chronic kidney disease, stage 2 (mild); E11.22 Type 2 diabetes mellitus with diabetic chronic kidney disease; E11.40 Type 2 diabetes mellitus with diabetic neuropathy, unspecified; Z79.4 Long term (current) use of insulin; Z91.19 Patient's noncompliance with other medical treatment and regimen; Z79.82 Long term (current) use of aspirin; Z79.02 Long term (current) use of antithrombotics/antiplatelets; Z95.1 Presence of aortocoronary bypass graft
CPT/HCPCS: 36415; 36416; 37228; 37232; 76942; 80053; 80202; 83605; 84145; 85025; 85347; 85652; 86140; 87040; 87635; 94760; 96365; 96366; 96368; J0692; J1644; J1815; J2250; J2543; J2720; J3010; J3370; J3490; J7050; Q9967; U0003

== ENCOUNTER 2021-05-20 12:38 | Inpatient (IN) | payer MEDICARE, BC ==
[2021-05-20 14:05] LABS: #Basophils 0.1 thou/uL (0.0-0.2); #Eosinphils 0.2 thou/uL (0.0-0.7); #Lymphocytes 2.2 thou/uL (1.20-3.40); #Monocytes 0.6 thou/uL (0.11-0.59); #Neutrophils 6.8 thou/uL (1.40-6.50); %Basophils 0.7 % (0.0-1.0); %Eosinophils 1.9 % (0.0-10.0); %Lymphocytes 22.3 % (21.0-51.0); %Monocytes 6.2 % (0.0-10.0); Hemoglobin 13.5 g/dL (14.0-18.0); Mean Corpuscular HGB CONC 32.6 g/dL (32.0-36.0); Mean Corpuscular Hemoglobin 28.9 pg (27.0-31.0); Mean Corpuscular Volume 88.7 fL (78.0-98.0); Mean Platelet Volume 6.3 fL (7.4-10.4); Platelet Count 392 thou/uL (130-400); RBC Distribution Width 12.8 % (11.5-14.5); Red Blood Cell (RBC) Count 4.68 mill/uL (4.70-6.10); White Blood Cell (WBC) Count 9.9 thou/uL (4.8-10.8)
[2021-05-20 14:26] LABS: ALT (SGPT) 14 U/L (8-55); AST (SGOT) 19 U/L (5-34); Albumin 3.9 g/dL (3.4-4.8); Alkaline Phosphatase 128 U/L (40-110); Anion Gap 13 mmol/L (10-20); BUN (Urea Nitrogen) 27 mg/dL (8.4-25.7); Bilirubin, Total 0.3 mg/dL (0.2-1.2); Calc. Creatinine Clearance 0 mL/min (70-130); Calcium 9.3 mg/dL (7.8-10.44); Carbon Dioxide 23 mmol/L (23-31); Chloride 106 mmol/L (98-107); Globulin 3.8 g/dL (2.4-3.5); Glucose 100 mg/dL (80-115); Potassium 4.3 mmol/L (3.5-5.1); Protein, Total 7.7 g/dL (5.8-8.1); Sodium 138 mmol/L (136-145)
[2021-05-20] MEDS ORDERED: Cefepime 2 GM VIAL ONE (14:34)
[2021-05-20] MEDS ORDERED: Dextrose 5% in Water 1,000 ML IV PRN ×2 (15:05→16:14)
[2021-05-20] MEDS ORDERED: Ondansetron PF 4 MG/2 ML Vial IVP PRN (15:05)
[2021-05-20] MEDS ORDERED: Vancomycin 1 GM/200 ML BAG ONE (15:05)
[2021-05-20] MEDS ORDERED: Dextrose 50% Abboject 50 ML SYRINGE SLOW IVP PRN ×2 (15:05→16:14)
[2021-05-20] MEDS ORDERED: HumaLOG 300 UNITS/3 ML VIAL SC PRN ×2 (15:07)
[2021-05-20] MEDS ORDERED: Pantoprazole 40 MG VIAL IVP SCH (15:10)
[2021-05-20] MEDS ORDERED: Octreotide Acetate 50 MCG/ML AMP SLOW IVP SCH (15:15)
[2021-05-20] MEDS ORDERED: cefTRIAXone\\ROCEPHIN 1 GM in Sodium Chloride 0.9% 100 ML IVPB SCH (15:15)
[2021-05-20] MEDS ORDERED: Octreotide Acetate 1,250 MCG in Sodium Chloride 0.9% 250 ML 250 ML IVPB SCH (15:15)
[2021-05-20] MEDS ORDERED: Lorazepam 2 MG/ML VIAL SLOW IVP PRN (15:17)
[2021-05-20 16:22] VITALS: BMI 25.2
[2021-05-20 17:58] LABS: Hemoglobin A1c 6.7 % (4.0-6.0)
[2021-05-20 18:10] LABS: SARS-CoV-2 NAA Rapid Test Not Detected (NotDetected)
[2021-05-20] MEDS: Cefepime 2 GM in Sodium Chloride 0.9% 100 ML IVPB SCH (21:25)
[2021-05-21] MEDS ORDERED: Vancomycin HCl 1.5 GM in Sodium Chloride 0.9% 250 ML 300 ML IVPB SCH (03:00)
[2021-05-21] MEDS: Vancomycin 1 GM in Premix Bag 1 BAG IVPB SCH ×2 (03:26→16:04)
[2021-05-21] MEDS: Cefepime 2 GM in Sodium Chloride 0.9% 100 ML IVPB SCH ×2 (05:55→17:32)
[2021-05-21 06:53] LABS: #Basophils 0.1 thou/uL (0.0-0.2); #Eosinphils 0.3 thou/uL (0.0-0.7); #Lymphocytes 1.9 thou/uL (1.20-3.40); #Monocytes 0.6 thou/uL (0.11-0.59); %Basophils 0.7 % (0.0-1.0); %Eosinophils 4.4 % (0.0-10.0); %Lymphocytes 24.4 % (21.0-51.0); %Monocytes 7.4 % (0.0-10.0); %Neutrophils 63.2 % (42.0-75.0); Hemoglobin 12.1 g/dL (14.0-18.0); Mean Corpuscular HGB CONC 34.5 g/dL (32.0-36.0); Mean Corpuscular Hemoglobin 30.2 pg (27.0-31.0); Mean Corpuscular Volume 87.5 fL (78.0-98.0); Mean Platelet Volume 6.2 fL (7.4-10.4); Platelet Count 354 thou/uL (130-400); RBC Distribution Width 12.7 % (11.5-14.5); Red Blood Cell (RBC) Count 4.01 mill/uL (4.70-6.10); White Blood Cell (WBC) Count 7.9 thou/uL (4.8-10.8)
[2021-05-21] MEDS ORDERED: Atorvastatin Calcium 20 MG TAB PO SCH (09:45)
[2021-05-21] MEDS ORDERED: Aspirin 81 mg Enteric Coated Tablet PO SCH (09:45)
[2021-05-21] MEDS: Enoxaparin Sodium 40 MG/0.4 ML SYRINGE SC SCH (10:04)
[2021-05-21] MEDS ORDERED: Cefepime 2 GM in Sodium Chloride 0.9% 100 ML IVPB SCH (10:15)
[2021-05-21] MEDS ORDERED: Magnevist 469MG/ML 20 ML VIAL ONE (10:55)
[2021-05-22 02:24] LABS: #Eosinphils 0.4 thou/uL (0.0-0.7); #Monocytes 0.7 thou/uL (0.11-0.59); #Neutrophils 4.8 thou/uL (1.40-6.50); %Basophils 0.5 % (0.0-1.0); %Eosinophils 5.4 % (0.0-10.0); %Lymphocytes 25.6 % (21.0-51.0); %Monocytes 8.8 % (0.0-10.0); %Neutrophils 59.7 % (42.0-75.0); Mean Corpuscular HGB CONC 35.7 g/dL (32.0-36.0); Mean Corpuscular Hemoglobin 31.4 pg (27.0-31.0); Mean Corpuscular Volume 87.9 fL (78.0-98.0); Mean Platelet Volume 6.1 fL (7.4-10.4); Platelet Count 319 thou/uL (130-400); RBC Distribution Width 12.6 % (11.5-14.5); Red Blood Cell (RBC) Count 3.82 mill/uL (4.70-6.10)
[2021-05-22 02:41] LABS: Vancomycin, Trough 12.8 ug/mL
[2021-05-22] MEDS: VANCOMYCIN 1.25 GM/250 ML BAG 1.25 GM in Premix Bag 1 BAG IVPB SCH ×2 (03:13→14:54)
[2021-05-22] MEDS: Cefepime 2 GM in Sodium Chloride 0.9% 100 ML IVPB SCH ×2 (05:54→17:52)
[2021-05-22] MEDS: Enoxaparin Sodium 40 MG/0.4 ML SYRINGE SC SCH (08:59)
[2021-05-22] MEDS: Aspirin 81 mg Enteric Coated Tablet PO SCH (08:59)
[2021-05-22] MEDS ORDERED: Aspirin 81 mg Enteric Coated Tablet PO SCH (09:00)
[2021-05-22] MEDS ORDERED: Atorvastatin Calcium 20 MG TAB PO SCH ×3 (09:00→21:00)
[2021-05-22 09:35] LABS: Anion Gap 13 mmol/L (10-20); BUN (Urea Nitrogen) 23 mg/dL (8.4-25.7); Calc. Creatinine Clearance 76 mL/min (70-130); Calcium 8.8 mg/dL (7.8-10.44); Carbon Dioxide 23 mmol/L (23-31); Chloride 108 mmol/L (98-107); Glucose 90 mg/dL (80-115); Potassium 3.9 mmol/L (3.5-5.1); Sodium 140 mmol/L (136-145)
[2021-05-23] MEDS ORDERED: Vancomycin HCl 1.25 GM in Sodium Chloride 0.9% 250 ML 250 ML IVPB SCH ×2 (03:00→15:00)
[2021-05-23] MEDS ORDERED: VANCOMYCIN 1.25 GM/250 ML BAG 1.25 GM in Premix Bag 1 BAG IVPB SCH (03:15)
[2021-05-23 05:33] VITALS: TEMP 97.8
[2021-05-23] MEDS ORDERED: Levothyroxine Sodium 100 MCG TAB PO SCH (06:00)
[2021-05-23] MEDS: Cefepime 2 GM in Sodium Chloride 0.9% 100 ML IVPB SCH (06:39)
[2021-05-23] MEDS ORDERED: Cefepime 2 GM in Sodium Chloride 0.9% 100 ML IVPB SCH (08:00)
[2021-05-23] MEDS: Aspirin 81 mg Enteric Coated Tablet PO SCH (08:07)
[2021-05-23] MEDS: Enoxaparin Sodium 40 MG/0.4 ML SYRINGE SC SCH (08:07)
[2021-05-23 08:12] VITALS: BP 127/67
[2021-05-23 08:32] LABS: #Basophils 0.1 thou/uL (0.0-0.2); #Eosinphils 0.5 thou/uL (0.0-0.7); #Monocytes 0.6 thou/uL (0.11-0.59); #Neutrophils 4.7 thou/uL (1.40-6.50); %Basophils 0.8 % (0.0-1.0); %Lymphocytes 25.1 % (21.0-51.0); %Monocytes 7.5 % (0.0-10.0); %Neutrophils 60.6 % (42.0-75.0); Hemoglobin 11.8 g/dL (14.0-18.0); Mean Corpuscular HGB CONC 34.3 g/dL (32.0-36.0); Mean Corpuscular Volume 87.4 fL (78.0-98.0); Mean Platelet Volume 6.4 fL (7.4-10.4); Platelet Count 349 thou/uL (130-400); RBC Distribution Width 12.4 % (11.5-14.5); Red Blood Cell (RBC) Count 3.92 mill/uL (4.70-6.10); White Blood Cell (WBC) Count 7.8 thou/uL (4.8-10.8)
[2021-05-23 08:50] LABS: Anion Gap 11 mmol/L (10-20); BUN (Urea Nitrogen) 22 mg/dL (8.4-25.7); Calc. Creatinine Clearance 94 mL/min (70-130); Calcium 8.8 mg/dL (7.8-10.44); Carbon Dioxide 24 mmol/L (23-31); Chloride 107 mmol/L (98-107); Glucose 94 mg/dL (80-115); Potassium 4.1 mmol/L (3.5-5.1); Sodium 138 mmol/L (136-145)
[2021-05-23] MEDS ORDERED: Fish Oil 1,000 MG CAP PO SCH (09:00)
[2021-05-23] MEDS ORDERED: Empagliflozin 25 MG TAB PO SCH (09:00)
[2021-05-23] MEDS ORDERED: Atenolol 25 MG TAB PO SCH (09:00)
== END 2021-05-23 12:50 | disposition home or self-care (01) | DRG 638 ==
LOC: ERS 12:38 → T4-B 14:43
PROVIDERS: ADMIT Family Medicine; ATTEND Family Medicine
DX: E11.621 Type 2 diabetes mellitus with foot ulcer (principal); L03.116 Cellulitis of left lower limb; L97.529 Non-pressure chronic ulcer of other part of left foot with unspecified severity; Z96.41 Presence of insulin pump (external) (internal); E03.9 Hypothyroidism, unspecified; E78.5 Hyperlipidemia, unspecified; I25.10 Atherosclerotic heart disease of native coronary artery without angina pectoris; D63.8 Anemia in other chronic diseases classified elsewhere; E11.65 Type 2 diabetes mellitus with hyperglycemia; E11.40 Type 2 diabetes mellitus with diabetic neuropathy, unspecified; R79.89 Other specified abnormal findings of blood chemistry; Z89.511 Acquired absence of right leg below knee; Z79.4 Long term (current) use of insulin; Z79.82 Long term (current) use of aspirin; Z79.890 Hormone replacement therapy; Z95.1 Presence of aortocoronary bypass graft; Z82.3 Family history of stroke; Z82.49 Family history of ischemic heart disease and other diseases of the circulatory system; Z83.3 Family history of diabetes mellitus
CPT/HCPCS: 36415; 36416; 80048; 80053; 80202; 83036; 83605; 84145; 85025; 85652; 86140; 87040; 94760; 96365; 96367; A9579; J0692; J1650; J3370; J3490; U0002

== ENCOUNTER 2023-05-19 07:34 | Outpatient (CLI) | payer MEDICARE, BC | END 2023-05-19 07:35 | disposition home or self-care (01) | LOC: SCSMRI 07:34 | PROVIDERS: ATTEND Physician Assistant Medical | DX: R74.8 Abnormal levels of other serum enzymes (principal); K57.10 Diverticulosis of small intestine without perforation or abscess without bleeding | CPT/HCPCS: 74183; 82565 ==